=== PATIENT | female | born 1985 | race Caucasian/White ===

== ENCOUNTER 2016-10-22 07:34 | Emergency (ER) | payer OTHER ==
[2016-10-22 07:41] VITALS: BP 109/78; TEMP 97.9
[2016-10-22] MEDS ORDERED: ONDANSETRON DISINTEGRATING 4 MG TAB PO ONE (07:43)
[2016-10-22] MEDS ORDERED: IBUPROFEN 600 MG TAB PO ONE (08:01)
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
[2016-10-22 08:35] VITALS: PULSE 72; RESP 14; O2SAT 99
== END 2016-10-22 08:33 | disposition home or self-care (01) ==
DX: S39.91XA Unspecified injury of abdomen, initial encounter (principal); R11.0 Nausea; W01.198A Fall on same level from slipping, tripping and stumbling with subsequent striking against other object, initial encounter; Y99.0 Civilian activity done for income or pay; Y93.89 Activity, other specified

== ENCOUNTER 2018-02-18 12:20 | Emergency (ER) | payer OTHER ==
[2018-02-18] MEDS ORDERED: ONDANSETRON DISINTEGRATING 4 MG TAB ONE (12:38)
[2018-02-18] MEDS ORDERED: NS 1,000 ML IV ONE (12:53)
[2018-02-18] MEDS ORDERED: ONDANSETRON DISINTEGRATING 4 MG TAB PO ONE (12:53)
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
[2018-02-18 13:38] VITALS: BP 119/74
== END 2018-02-18 14:05 | disposition home or self-care (01) ==
DX: T58.91XA Toxic effect of carbon monoxide from unspecified source, accidental (unintentional), initial encounter (principal); E86.9 Volume depletion, unspecified; Y99.0 Civilian activity done for income or pay